=== PATIENT | female | born 1965 | race Asian ===

== ENCOUNTER → 2021-11-08 | Outpatient (CLI) | payer BC ==
[2021-11-08 15:49] LABS: HEMATOCRIT 40.6 % (37.0-47.0); HEMOGLOBIN 13.3 g/dL (12.5-16.0)
== END ==
LOC: LAB 15:25
PROVIDERS: Internal Medicine Gastroenterology
DX: K75.9 Inflammatory liver disease, unspecified (principal); R79.0 Abnormal level of blood mineral; R74.8 Abnormal levels of other serum enzymes; R94.5 Abnormal results of liver function studies

== ENCOUNTER → 2021-12-06 | Outpatient (CLI) | payer BC ==
[2021-12-06 16:38] LABS: HEMATOCRIT 40.6 % (37.0-47.0); HEMOGLOBIN 13.3 g/dL (12.5-16.0)
== END ==
LOC: LAB 08:02
PROVIDERS: Internal Medicine Gastroenterology
DX: K75.9 Inflammatory liver disease, unspecified (principal); R79.0 Abnormal level of blood mineral; R74.8 Abnormal levels of other serum enzymes; R79.89 Other specified abnormal findings of blood chemistry

== ENCOUNTER → 2022-01-03 | Outpatient (CLI) | payer BC ==
[2022-01-03 16:15] LABS: HEMATOCRIT 39.8 % (37.0-47.0); HEMOGLOBIN 12.6 g/dL (12.5-16.0)
== END ==
LOC: LAB 15:55
PROVIDERS: Internal Medicine Gastroenterology
DX: K75.9 Inflammatory liver disease, unspecified (principal); R74.8 Abnormal levels of other serum enzymes; R79.89 Other specified abnormal findings of blood chemistry; R79.0 Abnormal level of blood mineral

== ENCOUNTER → 2022-01-24 | Outpatient (CLI) | payer BC ==
[2022-01-24 12:25] LABS: HEMATOCRIT 40.3 % (37.0-47.0); HEMOGLOBIN 12.8 g/dL (12.5-16.0)
== END ==
LOC: LAB 12:12
PROVIDERS: Internal Medicine Gastroenterology
DX: R79.0 Abnormal level of blood mineral (principal); R74.8 Abnormal levels of other serum enzymes; K75.9 Inflammatory liver disease, unspecified

== ENCOUNTER → 2022-04-07 | Outpatient (CLI) | payer BC ==
[2022-04-07 12:43] LABS: HEMATOCRIT 38.4 % (37.0-47.0); HEMOGLOBIN 11.8 g/dL (12.5-16.0)
== END ==
LOC: LAB 12:30
PROVIDERS: Internal Medicine Gastroenterology
DX: K75.9 Inflammatory liver disease, unspecified (principal); R79.0 Abnormal level of blood mineral; R74.8 Abnormal levels of other serum enzymes; R94.5 Abnormal results of liver function studies